=== PATIENT | male | born 2000 | race Two or more races ===

== ENCOUNTER 2022-02-17 20:25 | Emergency (ER) | payer MEDICAID, OTHER ==
[~2022-02-17] VITALS: Ht 167.6 cm; Wt 54.4 kg
[2022-02-17 20:25] VITALS: BP 147/91
== END 2022-02-18 00:05 | disposition left against medical advice (07) ==
LOC: ER 20:25
DX: R06.02 Shortness of breath (principal); F17.210 Nicotine dependence, cigarettes, uncomplicated; Z53.21 Procedure and treatment not carried out due to patient leaving prior to being seen by health care provider
CPT/HCPCS: 93005